=== PATIENT | male | born 1985 | race Caucasian/White ===

== ENCOUNTER 2017-10-25 18:57 | Emergency (ER) | payer MEDICAID, OTHER ==
[2017-10-25 20:07] LABS: ABG HCO3 24.2 MEQ/L (22.0-26.0); ABG O2 SATURATION 98.2 % (95.0-99.0); ABG PARTIAL PRESSURE CO2 38.3 mmHg (35.0-45.0); ABG PARTIAL PRESSURE O2 98.6 mmHg (75.0-100.0); ABG STANDARD HCO3 24.5 MEQ/L (22.0-26.0); ABG TOTAL CO2 25.4 MEQ/L (22.0-29.0); ABG pH (ARTERIAL) 7.419 UNITS (7.350-7.450)
[2017-10-25 20:12] LABS: BASO % 0.4 % (0.0-1.0); EOS # 0.1 10^3/uL (0.0-0.50); EOS % 1.1 % (0.0-3.0); HEMATOCRIT 43.1 % (42.0-52.0); HEMOGLOBIN 15.1 g/dl (13.5-17.5); IMMATURE GRANULOCYTE % 0.4 % (0-3.0); LYMPH # 1.5 10^3/uL (1.5-4.5); LYMPH % 20.2 % (24.0-44.0); MEAN CORPUSCULAR HEMOGLOBIN 31.1 pg (27.0-33.0); MEAN CORPUSCULAR VOLUME 88.9 fl (80.0-96.0); MONO # 0.6 10^3/uL (0.0-0.8); MONO % 8.7 % (0.0-5.0); NEUTROPHILS # 5.1 10^3/uL (1.8-7.7); NEUTROPHILS % 69.2 % (36.0-66.0); PLATELET COUNT, AUTOMATED 174 10^3/uL (150-450); RED BLOOD COUNT 4.85 10^6/uL (4.30-6.10); RED CELL DISTRIBUTION WIDTH 12.1 % (11.5-14.5); WHITE BLOOD COUNT 7.4 10^3/uL (4.0-10.0)
[2017-10-25 20:26] LABS: ANION GAP 7 MEQ/L (8-16); BLOOD UREA NITROGEN 17 MG/DL (7-18); CALCIUM LEVEL 8.8 MG/DL (8.5-10.1); CARBON DIOXIDE LEVEL 29 MEQ/L (21-32); CHLORIDE LEVEL 107 MEQ/L (98-107); CPK CREATINE PHOSPHOKINASE 124 U/L (39-308); CREATININE FOR GFR 1.23 MG/DL (0.70-1.30); GLOMERULAR FILTRATION RATE > 60.0 (>60); GLUCOSE, FASTING 100 MG/DL (70-100); INR 0.98; POTASSIUM SERUM 3.9 MEQ/L (3.5-5.1); PROTHROMBIN TIME 13.1 SECONDS (12.1-14.4); SODIUM LEVEL 143 MEQ/L (136-145); TROPONIN I < 0.02 NG/ML (< 0.10)
[2017-10-25 20:27] LABS: CK-MB VALUE MASS < 1.0 NG/ML (<3.6)
[2017-10-25] MEDS: KETOROLAC 30 MG/ML VIAL (J1885) IV (21:12)
== END 2017-10-25 22:21 | disposition home or self-care (01) ==
LOC: M ED 18:57
DX: R07.89 Other chest pain (principal); F43.10 Post-traumatic stress disorder, unspecified
CPT/HCPCS: J1885

== ENCOUNTER 2017-11-06 15:48 | Emergency (ER) | payer MEDICAID | END 2017-11-06 18:34 | disposition home or self-care (01) | LOC: M ED 15:48 | DX: K21.9 Gastro-esophageal reflux disease without esophagitis (principal); R10.31 Right lower quadrant pain; R19.7 Diarrhea, unspecified; F17.200 Nicotine dependence, unspecified, uncomplicated | CPT/HCPCS: 99283 ==

== ENCOUNTER 2018-03-09 03:12 | Emergency (ER) | payer OTHER ==
[~2018-03-09] VITALS: Ht 177.8 cm; Wt 88.6 kg
[~2018-03-09 03:12] MED LIST: HYDR-643; KETO10TAB PO; RANI15TA PO
[2018-03-09 03:13] VITALS: BP 137/70
[2018-03-09] MEDS ORDERED: BUPR150T3 PO (03:26)
[2018-03-09] MEDS ORDERED: HYDR-643 PO (03:26)
[2018-03-09] MEDS ORDERED: ZITHTAB PO (03:51)
[2018-03-09] MEDS ORDERED: AZITHROMYCIN 250 MG TAB PO ONE (04:00)
[2018-03-09] MEDS ORDERED: ERYTHROMYCIN OPHTH OINT OD ONE (04:00)
[2018-03-09] MEDS ORDERED: ACETAMINOPHEN TAB 650MG DOSE (2X325MG) PO ONE (04:30)
--- NOTE | 2018-03-09 06:21 | REP ---
Clinical: Cough . Comparison: 10/25/2017 . Technique: PA and lateral. Findings: The mediastinum and cardiac silhouette are normal. The lung marcos are clear and without acute consolidation, effusion, or pneumothorax. The skeletal structures are intact and normal. Impression: 1. No acute cardiopulmonary process. Electronically Signed by Gautam Zambrano MD 03/09/2018 06:13 A
== END 2018-03-09 04:30 | disposition home or self-care (01) ==
LOC: M ED 03:12
DX: J20.9 Acute bronchitis, unspecified (principal); H10.31 Unspecified acute conjunctivitis, right eye; H66.91 Otitis media, unspecified, right ear; F32.9 Major depressive disorder, single episode, unspecified; K21.9 Gastro-esophageal reflux disease without esophagitis; F17.200 Nicotine dependence, unspecified, uncomplicated; Z88.5 Allergy status to narcotic agent; Z79.899 Other long term (current) drug therapy

== ENCOUNTER 2018-04-12 13:02 | Emergency (ER) | payer OTHER ==
[~2018-04-12] VITALS: Ht 177.8 cm; Wt 88.6 kg
[2018-04-12 13:02] VITALS: BP 139/64
[~2018-04-12 13:02] MED LIST changes: +BUPR150T3 PO; +HYDR-643 PO; +ZITHTAB PO
--- NOTE | 2018-04-12 13:53 | REP ---
Chest x-ray: Two views. History: Cough. Comparison study: March 09, 2018. Findings: The lungs are symmetrically aerated and clear. Pleural angles are sharp. Heart size is normal. Pulmonary vasculature is not increased. No significant bony abnormality is seen. Impression: No active disease. Electronically Signed by Price Humphrey MD 04/12/2018 01:44 P
[2018-04-12 13:59] LABS: INFLUENZA A AMPLIFICATION NEGATIVE (NEGATIVE); INFLUENZA B AMPLIFICATION NEGATIVE (NEGATIVE)
[2018-04-12] MEDS ORDERED: IBUPROFEN 600 MG TAB PO ONE (15:45)
[2018-04-12] MEDS ORDERED: IBUP-1022 PO (15:45)
== END 2018-04-12 16:00 | disposition home or self-care (01) ==
LOC: M ED 13:02
DX: B34.9 Viral infection, unspecified (principal); R05 Cough; Z72.0 Tobacco use; Z88.5 Allergy status to narcotic agent

== ENCOUNTER 2018-11-27 20:26 | Emergency (ER) | payer OTHER ==
[~2018-11-27] VITALS: Ht 177.8 cm; Wt 93.6 kg
[2018-11-27 20:26] VITALS: BP 144/78
[~2018-11-27 20:26] MED LIST changes: +IBUP-1022 PO
== END 2018-11-27 21:48 | disposition home or self-care (01) ==
LOC: M ED 20:26
DX: J06.9 Acute upper respiratory infection, unspecified (principal); R50.9 Fever, unspecified; F17.210 Nicotine dependence, cigarettes, uncomplicated; Z88.5 Allergy status to narcotic agent

== ENCOUNTER 2018-11-29 21:39 | Emergency (ER) | payer OTHER ==
[2018-11-29 21:52] VITALS: BP 120/80
[2018-11-30] MEDS ORDERED: BENZONATATE 100 MG CAP PO ONE (00:15)
[2018-11-30] MEDS ORDERED: IBUPROFEN 800 MG TAB PO ONE (00:15)
[2018-11-30] MEDS ORDERED: BENZ200C70 PO (00:21)
== END 2018-11-30 00:31 | disposition home or self-care (01) ==
LOC: M ED 21:39
DX: J06.9 Acute upper respiratory infection, unspecified (principal); F17.200 Nicotine dependence, unspecified, uncomplicated; Z88.5 Allergy status to narcotic agent; K21.9 Gastro-esophageal reflux disease without esophagitis; K44.9 Diaphragmatic hernia without obstruction or gangrene

== ENCOUNTER 2019-03-29 19:48 | Emergency (ER) | payer OTHER ==
[~2019-03-29] VITALS: Ht 177.8 cm; Wt 92.3 kg
[~2019-03-29 19:48] MED LIST changes: +BENZ200C70 PO
[2019-03-29] MEDS ORDERED: LIDOCAINE 2% W/ EPINEPHRINE 1.7 ML DENTAL INJ SM ONE (20:45)
[2019-03-29 21:18] VITALS: BP 120/72
== END 2019-03-29 21:18 | disposition home or self-care (01) ==
LOC: M ED 19:48
DX: Z98.818 Other dental procedure status (principal); K08.89 Other specified disorders of teeth and supporting structures; F17.200 Nicotine dependence, unspecified, uncomplicated; Z88.5 Allergy status to narcotic agent

== ENCOUNTER 2019-04-24 13:31 | Emergency (ER) | payer OTHER ==
[~2019-04-24] VITALS: Ht 177.8 cm; Wt 94.8 kg
[2019-04-24] MEDS ORDERED: OXYC1TAB23 PO (15:11)
[2019-04-24] MEDS ORDERED: PENI500T PO (15:11)
[2019-04-24] MEDS ORDERED: ACET1TAB55 PO (15:15)
[2019-04-24 15:25] VITALS: BP 130/79
== END 2019-04-24 15:27 | disposition home or self-care (01) ==
LOC: M ED 13:31
DX: R68.84 Jaw pain (principal); K08.89 Other specified disorders of teeth and supporting structures; G50.1 Atypical facial pain; F17.200 Nicotine dependence, unspecified, uncomplicated; Z79.899 Other long term (current) drug therapy; Z88.5 Allergy status to narcotic agent

== ENCOUNTER 2019-04-26 13:06 | Emergency (ER) | payer OTHER ==
[~2019-04-26] VITALS: Ht 177.8 cm; Wt 92.3 kg
[~2019-04-26 13:06] MED LIST changes: +ACET1TAB55 PO; +OXYC1TAB23 PO; +PENI500T PO
[2019-04-26] MEDS ORDERED: OSEL75CA2 (13:43)
[2019-04-26] MEDS ORDERED: ONDANSETRON 4MG/2ML VIAL (J2405) IV ONE (16:30)
[2019-04-26] MEDS ORDERED: NS 1,000 ML IV ONE (16:30)
[2019-04-26 18:03] LABS: CK-MB VALUE MASS < 1.0 NG/ML (<3.6); CPK CREATINE PHOSPHOKINASE 138 U/L (39-308); MB/CK RELATIVE INDEX 0.72 (< OR =4); TROPONIN I < 0.02 NG/ML (< 0.10)
[2019-04-26] MEDS ORDERED: KETOROLAC 30 MG/ML VIAL (J1885) IV ONE (18:30)
[2019-04-26 18:31] VITALS: BP 133/60
[2019-04-26] MEDS ORDERED: ONDA4TAB6 PO (18:48)
--- NOTE | 2019-04-26 20:07 | ECGEPIP ---
[facility] - ED Test Date: 2019-04-26 Pat Name: RIC CROOK Department: Room: - Gender: Male [employer] Protection Specialist: ARIANNE : [id number] Requested By: MARIBEL Saucedo Order Number: [id number] Reading MD: Cris Morales Measurements Intervals [place] Rate: 79 P: 36 OR: 131 QRS: 30 QRSD: 102 T: 18 QT: 355 QTc: 409 Interpretive Statements SINUS RHYTHM POSSIBLE INFERIOR MYOCARDIAL INFARCTION, PROBABLY OLD INCREASED RATE 10/25/17 Electronically Signed on 04-26-2019 20:07:30 EST by Cris Morales
== END 2019-04-26 19:14 | disposition home or self-care (01) ==
LOC: EDBD 13:06 → M ED 13:06
DX: J10.1 Influenza due to other identified influenza virus with other respiratory manifestations (principal); R11.0 Nausea; F43.10 Post-traumatic stress disorder, unspecified; F17.200 Nicotine dependence, unspecified, uncomplicated; Z79.899 Other long term (current) drug therapy; Z88.5 Allergy status to narcotic agent
CPT/HCPCS: 80047; 82550; 82553; 93005; 96361; 96374; 96375; 99284; J1885; J2405

== ENCOUNTER 2020-06-16 11:49 | Emergency (ER) | payer BC, OTHER ==
[~2020-06-16] VITALS: Ht 177.8 cm; Wt 94.5 kg
[~2020-06-16 11:49] MED LIST changes: +BUPR150T12 PO; -BUPR150T3 PO; +ONDA4TAB6 PO; +OSEL75CA2
[2020-06-16] MEDS ORDERED: ONDANSETRON 4MG/2ML VIAL IV ONE (12:30)
[2020-06-16] MEDS ORDERED: KETOROLAC 30 MG/ML 1ML VIAL IV ONE (12:30)
[2020-06-16] MEDS ORDERED: NS 1,000 ML IV ONE (12:30)
[2020-06-16 13:18] LABS: BASO % 0.4 % (0.0-1.0); EOS # 0.1 10^3/uL (0.0-0.5); EOS % 0.7 % (0.0-3.0); HEMATOCRIT 44.8 % (42.0-52.0); HEMOGLOBIN 15.2 g/dl (13.5-17.5); LYMPH # 1.8 10^3/uL (1.5-5.0); LYMPH % 24.2 % (24.0-44.0); MEAN CORPUSCULAR HGB CONC 33.9 g/dl (32.0-36.5); MEAN CORPUSCULAR VOLUME 91.2 fl (80.0-96.0); MONO # 0.7 10^3/uL (0.0-0.8); MONO % 9.5 % (2.0-8.0); NEUTROPHILS # 4.7 10^3/uL (1.5-8.5); NEUTROPHILS % 64.8 % (36.0-66.0); PLATELET COUNT, AUTOMATED 177 10^3/uL (150-450); RED BLOOD COUNT 4.91 10^6/uL (4.30-6.10); WHITE BLOOD COUNT 7.2 10^3/uL (4.0-10.0)
[2020-06-16] MEDS ORDERED: ISOVUE-370 76% 100ML VIAL As Ordered ONE (13:37)
[2020-06-16 13:52] LABS: ALBUMIN 3.5 GM/DL (3.2-5.2); BILIRUBIN,DIRECT 0.3 MG/DL (0.0-0.2); TOTAL PROTEIN 6.6 GM/DL (6.4-8.2)
--- NOTE | 2020-06-16 14:16 | REP ---
INDICATION: right sided abd pain. COMPARISON: Abdomen/pelvis CT dated 10/31/2014. TECHNIQUE: Abdomen/pelvis CT with IV contrast, without bowel contrast. FINDINGS: There is a faintly visible calcification posterolateral to the bladder on the right on image 32, measuring 2 mm in diameter. This could represent a nonobstructive calculus in the distal right ureter. There is no right hydroureter or hydronephrosis. There are no right renal masses or cysts. The No a left kidneys unremarkable except for a small less than 1 cm Bosniak type 1 renal cortical cyst at the lower pole. There is no perinephric stranding on the right or the left. Visualized lung marcos are unremarkable except for dependent atelectasis. The hepatic parenchyma is homogeneous. The gallbladder, pancreas and spleen are unremarkable except for a stable dystrophic splenic calcification, possibly calcified hematoma. The adrenals are unremarkable. Abdominal aorta unremarkable. There is no periaortic adenopathy or mass. The bowel and mesentery are unremarkable. Pelvis: The appendix is unremarkable. The bladder is incompletely distended but otherwise unremarkable. There is no pelvic adenopathy or ascites. IMPRESSION: Findings are compatible with a tiny nonobstructive calculus in the distal right ureter near the UVJ. There is no right hydroureter or hydronephrosis. Stable dystrophic calcification in the spleen. The appendix and gallbladder are unremarkable. Otherwise, negative CT of the abdomen and pelvis. <Electronically signed by Maximilian Snell > 06/16/20 [id number]
[2020-06-16] MEDS ORDERED: OMEP40CA97 PO (14:24)
[2020-06-16] MEDS ORDERED: FLOM0.4C39 PO (14:24)
[2020-06-16] MEDS ORDERED: KETO10TAB PO (14:24)
[2020-06-16 14:52] VITALS: BP 116/68
== END 2020-06-16 14:54 | disposition home or self-care (01) ==
LOC: M ED 11:49
DX: N20.1 Calculus of ureter (principal); K21.9 Gastro-esophageal reflux disease without esophagitis; K44.9 Diaphragmatic hernia without obstruction or gangrene; F90.9 Attention-deficit hyperactivity disorder, unspecified type; F17.200 Nicotine dependence, unspecified, uncomplicated; Z88.5 Allergy status to narcotic agent
CPT/HCPCS: 74177; 80047; 80076; 81001; 83690; 85025; 96361; 96374; 96375; 99284; J1885; J2405; Q9967